=== PATIENT | male | born 1990 | race Caucasian/White ===

== ENCOUNTER 2016-10-19 10:44 | Emergency (ER) | payer MEDICAID ==
[2016-10-19 10:44] VITALS: BMI 24.0
[2016-10-19 10:49] VITALS: TEMP 98.1
--- NOTE | 2016-10-19 12:12 | ED PDOC ---
HPI: General Adult Time Seen by Provider: 10/19/16 11:26 Chief Complaint (Nursing): Abdominal Pain History Per: Patient Additional Complaint(s): Pt. states for the past month he's had constipation. Reports that he is able to pass gas and notices some diarrhea. Reports pain is localized to the rectal area. Denies abdominal pain, fever, vomiting. Of note, pt. does use heroin (3 bags) daily. Past Medical History Reviewed: Historical Data, Nursing Documentation, Vital Signs Vital Signs: Last Vital Signs Temp 98.1 F 10/19/16 10:49 Pulse 116 H 10/19/16 13:50 Resp 18 10/19/16 13:50 BP 146/86 10/19/16 13:50 Pulse Ox 100 10/19/16 13:50 - Medical History PMH: Asthma, Bipolar Disorder Denies: Diabetes, Hepatitis, HIV, HTN, Seizures, Sexually Transmitted Disease - Surgical History Surgical History: Appendectomy - Family History Family History: States: Unknown Family Hx - Immunization History Hx Tetanus Toxoid Vaccination: No Hx Influenza Vaccination: No Hx Pneumococcal Vaccination: No - Home Medications Home Medications: Ambulatory Orders Medication Instructions Recorded Glycerin [Glycerin Adult 1 sup RC DAILY PRN #6 sup 10/19/16 Suppository] Polyethylene Glycol 3350 [Miralax] 17 gm PO DAILY PRN #30 each 10/19/16 - Allergies Allergies/Adverse Reactions: Allergies Allergy/AdvReac Type Severity Reaction Status Date / Time FISH Allergy Verified 10/17/16 19:06 Penicillins Allergy Verified 10/17/16 19:06 Review of Systems ROS Statement: Except As Marked, All Systems Reviewed And Found Negative Gastrointestinal: Positive for: Rectal Pain Physical Exam - Reviewed Nursing Documentation Reviewed: Yes Vital Signs Reviewed: Yes - Physical Exam Appears: Positive for: Well, Non-toxic, No Acute Distress Head Exam: Positive for: ATRAUMATIC, NORMAL INSPECTION, NORMOCEPHALIC Skin: Positive for: Normal Color, Warm. Negative for: Rash Eye Exam: Positive for: EOMI, Normal appearance, PERRL ENT: Positive for: Normal ENT Inspection Neck: Positive for: Normal, Painless ROM Cardiovascular/Chest: Positive for: Regular Rate, Rhythm Respiratory: Positive for: CNT, Normal Breath Sounds Gastrointestinal/Abdominal: Positive for: Normal Exam, Soft. Negative for: Tenderness Back: Positive for: Normal Inspection Extremity: Positive for: Normal ROM Neurologic/Psych: Positive for: Alert, Oriented - ECG O2 Sat by Pulse Oximetry: 100 - Progress ED Course And Treament: Pt attempted to move BM HR increased to 130 bpm. Reports to having "shaking" to his legs. Repeat BP: 146/86. Clonidine 0.1mg PO given. Pt. manuall disimpacted by PA. Reports feel ing much better and had BM on his own. Procedures - Time-Out Type of Procedure: Digital impaction PA/Tech: Elena Disposition - Clinical Impression Clinical Impression: Constipation - Patient ED Disposition Is Patient to be Admitted: No - Disposition Referrals: [facility] [Outside] Disposition: Routine/Home Disposition Time: 13:18 Condition: IMPROVED Prescriptions: Glycerin [Glycerin Adult Suppository] 1 sup RC DAILY PRN #6 sup PRN Reason: Constipation Polyethylene Glycol 3350 [Miralax] 17 gm PO DAILY PRN #30 each PRN Reason: Constipation Instructions: Constipation (ED) Print Language: MARSHALLESE
[2016-10-19] MEDS ORDERED: Magnesium Citrate Oral SOL (300 ml) PO ONE (12:30)
--- NOTE | 2016-10-19 12:39 | RAD ---
HISTORY: constipation COMPARISON: None available. FINDINGS: BOWEL: Nonspecific bowel gas pattern. No definite free air. Severe constipation with possible impaction at the level the rectosigmoid colon. BONES: No acute osseous abnormality is detected. OTHER FINDINGS: None. IMPRESSION: Severe constipation with possible impaction at the level the rectosigmoid colon.
[2016-10-19 15:52] VITALS: BP 142/78; PULSE 89; RESP 16; O2SAT 99
== END 2016-10-19 15:50 | disposition home or self-care (01) ==
LOC: H.ER 10:44
DX: K59.00 Constipation, unspecified (principal); F31.9 Bipolar disorder, unspecified; Z88.0 Allergy status to penicillin

== ENCOUNTER 2017-02-13 16:48 | Emergency (ER) | payer MEDICAID, OTHER ==
[2017-02-13 16:48] VITALS: BMI 24.0
[2017-02-13 16:53] VITALS: RESP 16; TEMP 98
--- NOTE | 2017-02-13 17:20 | ED PDOC ---
HPI: Psych/Substance Abuse Time Seen by Provider: 02/13/17 16:50 Chief Complaint (Nursing): Substance Abuse Chief Complaint (Provider): Agitation History Per: Patient History/Exam Limitations: no limitations Onset/Duration Of Symptoms: Hrs Suicide/Self Injury Attempted (Context): None Modifying Factor(s): None Associated Symptoms: Agitation Additional History Per: EMS Additional Complaint(s): Kyaw Quintero, a 26 year old male, with a past medical history of bipolar disorder is brought into the ED for agitation. Per EMS, the patients mother called the police when she could not wake him up. The patient states that he awoke to the police being there and immediately became agitated and then they brought him to the ED. Patient admits to occasional heroin and cocaine use. Denies homicidal and suicidal ideations. Past Medical History Reviewed: Historical Data, Nursing Documentation, Vital Signs Vital Signs: Last Vital Signs Temp 98.0 F 02/13/17 16:50 Pulse 144 H 02/13/17 16:50 Resp 16 02/13/17 16:50 BP 147/67 02/13/17 16:50 Pulse Ox 97 02/13/17 16:50 - Medical History PMH: Asthma, Bipolar Disorder Denies: Diabetes, Hepatitis, HIV, HTN, Seizures, Sexually Transmitted Disease - Surgical History Surgical History: Appendectomy - Family History Family History: States: Unknown Family Hx - Social History Drugs: Cocaine, Opiates (heroin) - Immunization History Hx Tetanus Toxoid Vaccination: No Hx Influenza Vaccination: No Hx Pneumococcal Vaccination: No - Home Medications Home Medications: Ambulatory Orders Medication Instructions Recorded Docusate Sodium [Colace] 100 mg PO BID PRN #30 capsule 10/19/16 Glycerin [Glycerin Adult 1 sup RC DAILY PRN #6 sup 10/19/16 Suppository] Polyethylene Glycol 3350 [Miralax] 17 gm PO DAILY PRN #30 each 10/19/16 - Allergies Allergies/Adverse Reactions: Allergies Allergy/AdvReac Type Severity Reaction Status Date / Time FISH Allergy RASH Verified 02/13/17 16:50 Penicillins Allergy RASH Verified 02/13/17 16:50 Review of Systems ROS Statement: Except As Marked, All Systems Reviewed And Found Negative Psych: Positive for: Other (Agitated) Physical Exam - Reviewed Nursing Documentation Reviewed: Yes Vital Signs Reviewed: Yes - Physical Exam Appears: Positive for: Non-toxic, No Acute Distress (tearful) Skin: Positive for: Normal Color, Warm, Dry. Negative for: Rash Eye Exam: Positive for: Normal appearance, EOMI, PERRL. Negative for: Nystagmus ENT: Positive for: Tonsillar Swelling Cardiovascular/Chest: Positive for: Tachycardia. Negative for: Irregularly Irregular Respiratory: Positive for: Normal Breath Sounds. Negative for: Wheezing, Respiratory Distress Extremity: Positive for: Normal ROM. Negative for: Tenderness, Pedal Edema Neurologic/Psych: Positive for: Alert (A&O x3), Oriented, Gait. Negative for: Motor/Sensory Deficits - ECG O2 Sat by Pulse Oximetry: 97 (RA) Pulse Ox Interpretation: Normal Medical Decision Making Medical Decision Makin Initial Impression 26 y/o male presenting with agitation Initial Plan: * Reevaluation Scribe Attestation Documented by Lyn Haywood acting as a scribe for Tyesha Giraldo MD. Provider Attestation All medical record entries made by the Scribe were at my direction and personally dictated by me. I have reviewed the chart and agree that the record accurately reflects my personal performance of the history, physical exam, medical decision making, and the department course for this patient. I have also personally directed, reviewed, and agree with the discharge instructions and disposition. Disposition - Clinical Impression Clinical Impression: Polysubstance abuse - Disposition Referrals: [facility] [Outside] Disposition: Routine/Home Disposition Time: 17:46 Condition: STABLE Instructions: Polysubstance Abuse (ED) Forms: [employer] (Turkmen)
[2017-02-13 18:20] VITALS: BP 124/79; PULSE 111
[2017-02-24 18:36] VITALS: O2SAT 97
== END 2017-02-13 18:16 | disposition home or self-care (01) ==
LOC: H.ER 16:48
DX: F19.10 Other psychoactive substance abuse, uncomplicated (principal); Z86.59 Personal history of other mental and behavioral disorders; J45.909 Unspecified asthma, uncomplicated; Z88.0 Allergy status to penicillin

== ENCOUNTER 2017-03-28 05:01 | Emergency (ER) | payer MEDICAID ==
[2017-03-28 05:02] VITALS: BMI 24.0
[2017-03-28 05:16] VITALS: TEMP 97.9
[2017-03-28 05:48] LABS: BASO # 0.1 K/uL (0.0-0.2); BASO % 0.6 % (0.0-2.0); EOS # 0.1 K/uL (0.0-0.7); EOS % 0.5 % (0.0-4.0); HEMATOCRIT 33.2 % (35.0-51.0); LYMPH # 1.6 K/uL (1.0-4.3); LYMPH % 12.8 % (20.0-40.0); MEAN CELL VOLUME 88.8 fl (80.0-94.0); MEAN CORPUSCULAR HEMOGLOBIN 29.3 pg (27.0-31.0); MEAN PLATELET VOLUME 7.1 fl (7.2-11.7); MONO # 0.8 K/uL (0.0-0.8); NEUT # 10.3 K/uL (1.8-7.0); NEUT % 80.1 % (50.0-75.0); RED CELL DISTRIBUTION WIDTH 14.1 % (11.5-14.5); WHITE BLOOD COUNT 12.8 K/uL (4.8-10.8)
--- NOTE | 2017-03-28 05:51 | ED PDOC ---
HPI: Psych/Substance Abuse Time Seen by Provider: 03/28/17 05:17 Chief Complaint (Nursing): Substance Abuse Chief Complaint (Provider): Substance Abuse History Per: Patient History/Exam Limitations: no limitations Onset/Duration Of Symptoms: Mins (just prior to arrival) Additional History Per: EMS Additional Complaint(s): 26 y/o male, brought in by EMS, with a past medical history of heroin abuse, bipolar disorder, and asthma, presents to the ED with a chief complaint of a possible overdose. According to EMS, patient was brought to the ED after 991 was alerted by a family member after finding the patient unresponsive. The patient was found by EMS in his bedroom in respiratory distress with decreased oxygen levels, so they administered Narcan 2 mg IV on arrival. Patient admits to taking 2 bags of heroin prior, but denies any suicidal and homicidal ideation. Past Medical History Reviewed: Historical Data, Nursing Documentation, Vital Signs Vital Signs: Last Vital Signs Temp 97.9 F 03/28/17 05:11 Pulse 108 H 03/28/17 05:15 Resp 18 03/28/17 05:15 BP 110/60 03/28/17 05:15 Pulse Ox 98 03/28/17 05:15 - Medical History PMH: Asthma, Bipolar Disorder Denies: Diabetes, Hepatitis, HIV, HTN, Seizures, Sexually Transmitted Disease - Surgical History Surgical History: Appendectomy - Family History Family History: States: Unknown Family Hx - Social History Current smoker - smoking cessation education provided: Yes (>10 cigarettes daily ) Drugs: Opiates (heroin abuse) - Immunization History Hx Tetanus Toxoid Vaccination: No Hx Influenza Vaccination: No Hx Pneumococcal Vaccination: No - Home Medications Home Medications: Ambulatory Orders Medication Instructions Recorded Docusate Sodium [Colace] 100 mg PO BID PRN #30 capsule 10/19/16 Glycerin [Glycerin Adult 1 sup RC DAILY PRN #6 sup 10/19/16 Suppository] Polyethylene Glycol 3350 [Miralax] 17 gm PO DAILY PRN #30 each 10/19/16 - Allergies Allergies/Adverse Reactions: Allergies Allergy/AdvReac Type Severity Reaction Status Date / Time FISH Allergy unknown Verified 03/28/17 20:24 Penicillins Allergy SWELLING Verified 03/28/17 20:24 Review of Systems ROS Statement: Except As Marked, All Systems Reviewed And Found Negative Psych: Negative for: Suicidal ideation, Other (homicidal ideation) Physical Exam - Reviewed Nursing Documentation Reviewed: Yes Vital Signs Reviewed: Yes - Physical Exam Appears: Positive for: Non-toxic, No Acute Distress Head Exam: Positive for: ATRAUMATIC, NORMOCEPHALIC Skin: Positive for: Normal Color, Warm, DRY Eye Exam: Positive for: Normal appearance, EOMI, PERRL ENT: Positive for: Normal ENT Inspection Neck: Positive for: Normal, Painless ROM, Supple Cardiovascular/Chest: Positive for: Regular Rate, Rhythm. Negative for: Murmur Respiratory: Positive for: Normal Breath Sounds. Negative for: Respiratory Distress Gastrointestinal/Abdominal: Positive for: Normal Exam, Soft. Negative for: Tenderness Back: Positive for: Normal Inspection Extremity: Positive for: Normal ROM. Negative for: Pedal Edema, Deformity Neurologic/Psych: Positive for: Alert, Oriented. Negative for: Motor/Sensory Deficits - Laboratory Results Result Diagrams: 03/28/17 05:40 03/28/17 05:40 - ECG O2 Sat by Pulse Oximetry: 98 (RA) Pulse Ox Interpretation: Normal Medical Decision Making Medical Decision Making: Time: --05:29 Impression: --26 y/o male with a status post heroin overdose requiring Narcan reversal Plan: --Alohol serum --labs --Drug Screen, Urine --Heplock Insertion --Accucheck Reassess -- Scribe Attestation: Documented by Florentino Alexander acting as a scribe for Pipo Obrien MD. Provider Attestation: All medical record entries made by the Scribe were at my direction and personally dictated by me. I have reviewed the chart and agree that the record accurately reflects my personal performance of the history, physical exam, medical decision making, and the department course for this patient. I have also personally directed, reviewed, and agree with the discharge instructions and disposition. Disposition - Clinical Impression Clinical Impression: Heroin overdose - Disposition Disposition: Routine/Home Disposition Time: 07:00 Condition: STABLE Instructions: Narcotic Abuse (ED) Forms: [employer] (Czech)
[2017-03-28 06:02] LABS: ALCOHOL SERUM < 10 mg/dl (0-10); ALKALINE PHOSPHATASE 55 U/L (38-126); ALT/SGPT 100 U/L (21-72); AST/SGOT 105 U/L (17-59); BILIRUBIN,TOTAL 0.1 mg/dl (0.2-1.3); BLOOD UREA NITROGEN 15 mg/dl (9-20); CALCIUM 7.9 mg/dL (8.4-10.2); CARBON DIOXIDE 28 mmol/L (22-30); CHLORIDE 103 mmol/L (98-107); GFR AFRICAN-AMERICAN > 60; GLUCOSE,RANDOM 116 mg/dL (75-110); POTASSIUM 3.2 MMOL/L (3.6-5.0); SODIUM 140 mmol/l (132-148); TOTAL PROTEIN 6.2 G/DL (6.3-8.2)
[2017-03-28 06:25] LABS: ALB/GLOB RATIO 1.3 (1.0-2.1)
[2017-03-28] MEDS ORDERED: Sodium Chloride 0.9% 1,000 ML IV STA (06:48)
[2017-03-28 07:27] VITALS: RESP 16
[2017-03-28 08:20] VITALS: BP 98/44; PULSE 100
[2017-04-01 03:55] VITALS: O2SAT 98
== END 2017-03-28 08:36 | disposition home or self-care (01) ==
LOC: H.ER 05:01
DX: F11.10 Opioid abuse, uncomplicated (principal); F31.9 Bipolar disorder, unspecified; Z88.0 Allergy status to penicillin
CPT/HCPCS: 80053; 80320; 82948; 85025; 99285; J7040

== ENCOUNTER 2017-03-28 20:20 | Emergency (ER) | payer MEDICAID ==
[2017-03-28 20:20] VITALS: BMI 24.0
[2017-03-28 20:30] VITALS: O2SAT 94
[2017-03-28] MEDS ORDERED: Sodium Chloride 0.9% 1,000 ML IV STA (20:49)
--- NOTE | 2017-03-28 21:57 | ED PDOC ---
HPI: Psych/Substance Abuse Time Seen by Provider: 03/28/17 20:32 Chief Complaint (Nursing): Substance Abuse Chief Complaint (Provider): overdose History Per: Patient Onset/Duration Of Symptoms: Mins (30 min) Additional Complaint(s): Brought in by EMS after being given Narcan for overdose. Currently he is awake. He reports that he injected a bag of heroin just prior to being found unresponsive. He has just gotten out of half-way on Wednesday where he was clean for months. He bought 3 bags of heroin yesterday. First one he had early afternoon yesterday and reports he was "fine." He used again at 4am this morning, became unresponsive and presented here, was given naloxone and discharged. He used the last bag prior to arrival. Denies using any other drugs or alcohol today. PMD None Past Medical History Reviewed: Historical Data, Nursing Documentation, Vital Signs Vital Signs: Last Vital Signs Temp 100.6 F H 03/28/17 20:24 Pulse 129 H 03/28/17 20:24 Resp 20 03/28/17 20:24 BP 117/66 03/28/17 20:24 Pulse Ox 94 L 03/28/17 20:24 - Medical History PMH: Asthma, Bipolar Disorder Denies: Diabetes, Hepatitis, HIV, HTN, Seizures, Sexually Transmitted Disease - Surgical History Surgical History: Appendectomy - Family History Family History: States: Unknown Family Hx - Social History Current smoker - smoking cessation education provided: Yes Alcohol: Occasional Drugs: Cannabis, Opiates - Immunization History Hx Tetanus Toxoid Vaccination: No Hx Influenza Vaccination: No Hx Pneumococcal Vaccination: No - Home Medications Home Medications: Ambulatory Orders Medication Instructions Recorded Docusate Sodium [Colace] 100 mg PO BID PRN #30 capsule 10/19/16 Glycerin [Glycerin Adult 1 sup RC DAILY PRN #6 sup 10/19/16 Suppository] Polyethylene Glycol 3350 [Miralax] 17 gm PO DAILY PRN #30 each 10/19/16 - Allergies Allergies/Adverse Reactions: Allergies Allergy/AdvReac Type Severity Reaction Status Date / Time FISH Allergy unknown Verified 03/28/17 20:24 Penicillins Allergy SWELLING Verified 03/28/17 20:24 Review of Systems ROS Statement: Except As Marked, All Systems Reviewed And Found Negative (and as per HPI) Respiratory: Negative for: Cough Psych: Negative for: Anxiety, Depression, Suicidal ideation Physical Exam - Reviewed Nursing Documentation Reviewed: Yes Vital Signs Reviewed: Yes - Physical Exam Appears: Positive for: No Acute Distress Head Exam: Positive for: ATRAUMATIC, NORMOCEPHALIC Skin: Positive for: Warm, Dry Eye Exam: Positive for: EOMI, PERRL ENT: Negative for: Pharyngeal Erythema, Tonsillar Exudate Neck: Positive for: Painless ROM, Supple Cardiovascular/Chest: Positive for: Tachycardia. Negative for: Murmur Respiratory: Positive for: Normal Breath Sounds. Negative for: Wheezing, Respiratory Distress Gastrointestinal/Abdominal: Positive for: Soft. Negative for: Tenderness Back: Positive for: Normal Inspection. Negative for: Decreased ROM Extremity: Positive for: Normal ROM. Negative for: Deformity Lymphatic: Negative for: Adenopathy Neurologic/Psych: Positive for: Alert. Negative for: Motor/Sensory Deficits - ECG O2 Sat by Pulse Oximetry: 94 - Progress Re-evaluation Time: 22:45 Condition: Re-examined, Improved (Observed patient until narcan wore off and he maintained mental status.) Disposition - Clinical Impression Clinical Impression: Heroin overdose Counseled Patient/Family Regarding: Studies Performed, Diagnosis, Need For Followup (Addiction Resource list given.) - Disposition Referrals: [facility] [Outside] Disposition: Routine/Home Disposition Time: 22:00 Condition: IMPROVED Instructions: Narcotic Abuse (ED)
[2017-03-28 23:16] VITALS: BP 128/78; PULSE 92; RESP 19; TEMP 98.7
== END 2017-03-28 23:10 | disposition home or self-care (01) ==
LOC: H.ER 20:20
DX: T40.1X1A Poisoning by heroin, accidental (unintentional), initial encounter (principal); F31.9 Bipolar disorder, unspecified; J45.909 Unspecified asthma, uncomplicated; Z88.0 Allergy status to penicillin; F17.200 Nicotine dependence, unspecified, uncomplicated
CPT/HCPCS: 96360; 99285; J7040

== ENCOUNTER 2017-05-26 10:10 | Emergency (ER) | payer MEDICAID ==
[2017-05-26 10:10] VITALS: BMI 24.0
[2017-05-26 11:30] LABS: BASO % 0.1 % (0.0-2.0); HEMOGLOBIN 13.8 g/dL (12.0-18.0); LYMPH # 0.8 K/uL (1.0-4.3); LYMPH % 13.4 % (20.0-40.0); MEAN CELL VOLUME 87.8 fl (80.0-94.0); MEAN CORPUSCULAR HEMOGLOBIN 30.3 pg (27.0-31.0); MEAN CORPUSCULAR HGB CONC 34.5 g/dL (33.0-37.0); MEAN PLATELET VOLUME 7.9 fl (7.2-11.7); MONO # 0.2 K/uL (0.0-0.8); MONO % 2.7 % (0.0-10.0); NEUT # 5.2 K/uL (1.8-7.0); NEUT % 83.8 % (50.0-75.0); NRBC % 0.1 % (0.0-0.0); RBC 4.56 Mil/uL (4.40-5.90); RED CELL DISTRIBUTION WIDTH 13.5 % (11.5-14.5); WHITE BLOOD COUNT 6.2 K/uL (4.8-10.8)
[2017-05-26 11:34] LABS: URINE BILIRUBIN NEGATIVE (NEGATIVE); URINE BLOOD NEGATIVE (NEGATIVE); URINE CLARITY SLIGHTY-CLOUDY (Clear); URINE COLOR YELLOW (YELLOW); URINE GLUCOSE (UA) NEG (Normal); URINE LEUKOCYTE ESTERASE NEG Leu/uL (Negative); URINE NITRATE NEGATIVE (NEGATIVE); URINE PROTEIN 30 mg/dL (NEGATIVE)
[2017-05-26 11:43] LABS: ALB/GLOB RATIO 1.3 (1.0-2.1); ALBUMIN 4.5 g/dL (3.5-5.0); ALT/SGPT 32 U/L (21-72); AST/SGOT 26 U/L (17-59); BLOOD UREA NITROGEN 14 mg/dl (9-20); CALCIUM 9.8 mg/dL (8.4-10.2); GFR AFRICAN-AMERICAN > 60; GFR NON-AFRICAN AMERICAN > 60
[2017-05-26 11:54] LABS: BARBITURATES, UR NEGATIVE (NEGATIVE); BENZODIAZEPINES, UR NEGATIVE (NEGATIVE); PHENCYCLIDINE, UR NEGATIVE (NEGATIVE)
[2017-05-26 11:55] LABS: OPIATES, UR POSITIVE (NEGATIVE)
[2017-05-26] MEDS ORDERED: DiphenhydrAMINE 50 mg/ml Inj ONE (12:41)
[2017-05-26] MEDS ORDERED: DiphenhydrAMINE 50 mg/ml Inj IVP STA (12:41)
[2017-05-26] MEDS ORDERED: DiphenhydrAMINE 50 mg/ml Inj IM STA (13:29)
[2017-05-26 14:07] VITALS: BP 142/89; RESP 16; TEMP 98.1; O2SAT 96
--- NOTE | 2017-05-27 09:13 | CARD ---
APPROVED REPORT EKG Measurement Heart [id number] <Conclusion> Baseline artefacts ++ Sinus rhythm with APCs++ Abnormal ECG
[2017-05-27 15:10] VITALS: PULSE 93
--- NOTE | 2017-05-27 15:10 | ED PDOC ---
HPI: Psych/Substance Abuse Time Seen by Provider: 05/26/17 10:42 Chief Complaint (Nursing): Psychiatric Evaluation History Per: Patient Additional Complaint(s): Pt. states he has not heroin in 2 days. Pt. is requesting to be placed in detox. Also c/o feeling suicidal. Pt. reports no plan. Currently c/o nausea but no vomiting. Denies chest pain, palpitations, abdominal pain, diarrhea, fever. Against Medical Advice - AMA Patient Left Against Medical Advice: The patient declines admission to the hospital and wishes to leave the Emergency Department. This action is against my medical advice. This decision was made with informed refusal. The patient was told that admission to the hospital is necessary. Explanation of the reasons why were discussed. The risks of leaving were explained to the patient and include, but are not limited to, worsening of known or currently unknown conditions, permanent disability and from undiagnosed or untreated conditions. The patient has the capacity to make this informed decision and understands my explanation of the current medical problem and risks of leaving. The patient voluntarily accepts these risks and signed an AMA form documenting our conversation. The patient was given the opportunity to ask questions and reconsider. The patient was encouraged to return to the Emergency Department at any time for further care. Past Medical History Reviewed: Historical Data, Nursing Documentation, Vital Signs Vital Signs: Last Vital Signs Temp 98.1 F 05/26/17 14:07 Pulse 98 H 05/26/17 14:07 Resp 16 05/26/17 14:07 BP 142/89 05/26/17 14:07 Pulse Ox 96 05/26/17 14:07 - Medical History PMH: Asthma, Bipolar Disorder Denies: Diabetes, Hepatitis, HIV, HTN, Seizures, Sexually Transmitted Disease - Surgical History Surgical History: Appendectomy - Family History Family History: States: No Known Family Hx - Immunization History Hx Tetanus Toxoid Vaccination: No Hx Influenza Vaccination: No Hx Pneumococcal Vaccination: No - Allergies Allergies/Adverse Reactions: Allergies Allergy/AdvReac Type Severity Reaction Status Date / Time FISH Allergy unknown Verified 03/28/17 20:24 Penicillins Allergy SWELLING Verified 03/28/17 20:24 Review of Systems ROS Statement: Except As Marked, All Systems Reviewed And Found Negative Physical Exam - Reviewed Nursing Documentation Reviewed: Yes Vital Signs Reviewed: Yes - Physical Exam Appears: Positive for: Well, Non-toxic, No Acute Distress Head Exam: Positive for: ATRAUMATIC, NORMAL INSPECTION, NORMOCEPHALIC Skin: Positive for: Normal Color, Warm. Negative for: Rash Eye Exam: Positive for: EOMI, Normal appearance, PERRL ENT: Positive for: Normal ENT Inspection Neck: Positive for: Normal, Painless ROM Cardiovascular/Chest: Positive for: Regular Rate, Rhythm Respiratory: Positive for: CNT, Normal Breath Sounds Gastrointestinal/Abdominal: Positive for: Normal Exam, Soft. Negative for: Tenderness Back: Positive for: Normal Inspection Extremity: Positive for: Normal ROM Neurologic/Psych: Positive for: Alert, Oriented. Negative for: Aphasia, Facial Droop - Laboratory Results Result Diagrams: 05/26/17 11:20 05/26/17 11:20 - ECG ECG: Positive for: Interpreted By Me (and Dr. Brennan) ECG Rhythm: Positive for: Atrial Fibrillation. Negative for: ST/T Changes Rate: 93 O2 Sat by Pulse Oximetry: 96 - Progress ED Course And Treament: Labs ordered. Clonidine 0.1mg PO ordered. Pt. placed on supervising editor news reel. Pt. informed of EKG results and need for medical admission. Pt. refuses and states he said he was suicidal to be seen quicker. Pt. does not want to stay in hospital for his heart. Informed that he will be treated for his drug withdrawals as well but still refuses to be admitted medically. Pt. states he will sign AMA. Pt. evaluated by Teresa sifuentes, who spoke with psychiatrist and cleared pt. for discharge. Disposition - Clinical Impression Clinical Impression: New onset atrial fibrillation, Substance abuse, Left against medical advice - Patient ED Disposition Is Patient to be Admitted: No - Disposition Referrals: [facility] [Outside] Disposition: Against Medical Advice Disposition Time: 14:08 Condition: STABLE Instructions: Atrial Fibrillation (ED), Polysubstance Abuse (ED), Against Medical Advice (ED) Forms: [employer] (Mongolian) Print Language: TAJIK
== END 2017-05-26 14:09 | disposition home or self-care (01) ==
LOC: H.ER 10:10
DX: F19.10 Other psychoactive substance abuse, uncomplicated (principal); I48.91 Unspecified atrial fibrillation; R45.851 Suicidal ideations; F31.9 Bipolar disorder, unspecified; J45.909 Unspecified asthma, uncomplicated; Z88.0 Allergy status to penicillin
CPT/HCPCS: 80053; 80320; 80324; 80345; 80346; 80349; 80353; 80358; 80361; 81003; 83992; 85025; 93005; 96372; 99283; J1200

== ENCOUNTER 2018-08-16 16:45 | Emergency (ER) | payer MEDICAID ==
[2018-08-16 16:45] VITALS: BMI 24.0
[2018-08-16 16:50] VITALS: RESP 16
[2018-08-16] MEDS ORDERED: Lidocaine/Epi 1% 1:100000 20 ML IJ ONE (17:12)
[2018-08-16] MEDS ORDERED: Lidocaine 1% w Epi 1:100,000 Inj ONE (17:20)
--- NOTE | 2018-08-16 17:47 | CT ---
Date of service: 08/16/2018 PROCEDURE: CT HEAD WITHOUT CONTRAST. HISTORY: trauma COMPARISON: Noncontrast head CT performed 08/16/18 TECHNIQUE: Axial computed tomography images were obtained through the head/brain without intravenous contrast. Radiation dose: Total exam DLP = 826.06 mGy-cm. This CT exam was performed using one or more of the following dose reduction techniques: Automated exposure control, adjustment of the mA and/or kV according to patient size, and/or use of iterative reconstruction technique. FINDINGS: HEMORRHAGE: No intracranial hemorrhage. BRAIN: No mass effect or edema. No atrophy or chronic microvascular ischemic changes. VENTRICLES: No hydrocephalus. CALVARIUM: Unremarkable. PARANASAL SINUSES: Unremarkable as visualized. No significant inflammatory changes. MASTOID AIR CELLS: Unremarkable as visualized. No inflammatory changes. OTHER FINDINGS: None. IMPRESSION: No acute intracranial pathology identified.
--- NOTE | 2018-08-16 17:53 | CT ---
Date of service: 08/16/2018 CT maxillofacial bones without IV contrast Indication: trauma Comparison: Noncontrast head CT performed the same day Technique: Axial computed tomography images were obtained of the maxillofacial bones without the use of intravenous contrast. Coronal and sagittal reformatted images were generated and reviewed. This CT exam was performed using 1 or more of the following dose reduction techniques: Automated exposure control, adjustment of the MAA and/or kV according to patient size, and/or use of iterative reconstruction technique. Radiation dose: Total exam DLP = 821.77 mGy-cm. Findings: The facial bones appear unremarkable without acute displaced fracture. The orbits appear unremarkable. The temporomandibular joints appear located. The mastoid air cells appear clear. Mucosal thickening of the ethmoid air cells. The remainder of the visualized paranasal sinuses appear clear. Visualized brain appears unremarkable. The soft tissues appear unremarkable. Impression: No acute findings identified. See above.
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
[2018-08-16 20:42] VITALS: BP 142/69; PULSE 102; TEMP 99.1; O2SAT 98
== END 2018-08-16 20:55 ==
LOC: H.ER 16:45
DX: S01.81XA Laceration without foreign body of other part of head, initial encounter (principal); Y09 Assault by unspecified means; S09.90XA Unspecified injury of head, initial encounter; Z86.59 Personal history of other mental and behavioral disorders; J45.909 Unspecified asthma, uncomplicated; Z88.0 Allergy status to penicillin; Z00.8 Encounter for other general examination